=== PATIENT | female | born 1975 | race African-American/Black ===

== ENCOUNTER 2017-05-02 07:05 | Inpatient (IN) | payer BC ==
[2017-05-02] MEDS ORDERED: Sodium Chloride 0.9% 10 ML Syringe FLUSH PRN (09:12)
[2017-05-02] MEDS ORDERED: Lactated Ringers 1,000 ML IV SCH (09:15)
[2017-05-02] MEDS: Oxytocin/Lactated Ringers 10 UNIT/1,000 ML BAG IV SCH ×4 (09:35→14:33)
--- NOTE | 2017-05-02 09:41 | PCM.LDHP ---
L&D History of Present Illness - General Date of Service: 05/02/17 Admit Problem/Dx: Patient Status Order with Admit Dx/Problem 05/02/17 09:15 Patient Status [ADT] Routine Admission Diagnosis/Problem Admission Diagnosis/Problem Source of Information: Patient History Limitations: Reports: No Limitations - History of Present Illness Introduction:: Patient is a 41 y/o at 39 5/7 wks presents for IOL for AMA. Doing well. No new issues since last seen in clinic. - Related Data Allergies/Adverse Reactions: Allergies Allergy/AdvReac Type Severity Reaction Status Date / Time No Known Allergies Allergy Verified 03/22/15 17:40 Home Medications: Home Meds PNV95/Ferrous Fumarate/FA [ Tablet] 1 each PO DAILY 07/28/15 [History] Alum Hydrox/Mag Hydrox/Simeth [Mag-Al Plus] 30 ml PO Q8H PRN #0 cup 08/04/15 [Rx ] Past Medical History HEENT History: Reports: Other (See Below) Other HEENT History: Wears glasses Cardiovascular History: Reports: Other (See Below) (Hx of pre- eclampsia) [employer] History: Reports: Fibroids, , Spontaneous : 5 Para: 2 LMP (Approximate): - Infectious Disease History Infectious Disease History: Reports: Hepatitis B - Past Surgical History Female Surgical History: Reports: D&C Social & Family History - Family History Family Medical History: Noncontributory OBGYN: Reports: Fibroids - Tobacco Use Smoking Status *Q: Never Smoker - Alcohol Use Alcohol Use History: No - Recreational Drug Use Recreational Drug Use: No H&P Review of Systems - Review of Systems: Review Of Systems: See Below General: Reports: No Symptoms Pulmonary: Reports: No Symptoms Cardiovascular: Reports: No Symptoms Gastrointestinal: Reports: No Symptoms Genitourinary: Reports: No Symptoms Musculoskeletal: Reports: No Symptoms Psychiatric: Reports: No Symptoms L&D Exam - Exam Exam: See Below - Vital Signs Weight: 88.904 kg - OB Specific Contraction Intensity: Irritability Movement: Active Heart Tones: Present Heart Tones per Min: 140 Heart Rate (FHR) Variability: Moderate (6-25 bmp) Presentation: Vertex - Torres Score Torres Score Cervix Position: Midposition Torres Score Consistency: Soft Torres Score Effacement: 51-70% Torres Score Dilation: 3-4 cm Torres Score 's Station: -2 Torres Score Total: 8 - Exam General: Alert, Oriented, Cooperative Lungs: Clear to Auscultation, Normal Respiratory Effort Cardiovascular: Regular Rate, Regular Rhythm GI/Abdominal Exam: Soft, Non-Tender Genitourinary: Normal external exam Extremities: Normal Inspection Skin: Warm, Dry, Intact - Patient Data Lab Results Last 24 hrs: Laboratory Results - last 24 hr 05/02/17 Range/Units 08:20 WBC 6.26 (3.98-10.04) K/mm3 RBC 5.09 (3.98-5.22) M/mm3 Hgb 12.1 (11.2-15.7) gm/L Hct 37.7 (34.1-44.9) % MCV 74.1 L (79.4-94.8) fl MCH 23.8 L (25.6-32.2) pg MCHC 32.1 L (32.2-35.5) g/dl RDW Std Deviation 39.4 (36.4-46.3) fL Plt Count 180 L (182-369) K/mm3 MPV 11.2 (9.4-12.3) fl Result Diagrams: 05/02/17 08:20 - Problem List (1) 39 weeks gestation of SNOMED Code(s): 88773832 ICD Code: Z3A.39 - 39 WEEKS GESTATION OF Status: Acute Current Visit: Yes (2) Advanced maternal age (AMA) in SNOMED Code(s): 424621974 ICD Code: GXP4323 - Status: Acute Current Visit: No (3) Fibroid uterus SNOMED Code(s): 74126175 ICD Code: D25.9 - LEIOMYOMA OF UTERUS, UNSPECIFIED Status: Acute Current Visit: No Qualifiers: Uterine leiomyoma location: unspecified location Qualified Code(s): D25.9 - Leiomyoma of uterus, unspecified (4) Hepatitis B affecting SNOMED Code(s): 037887073 ICD Code: O98.419 - VIRAL HEPATITIS COMPLICATING , UNSP TRIMESTER; B19.10 - UNSPECIFIED VIRAL HEPATITIS B WITHOUT HEPATIC COMA Status: Acute Current Visit: No Problem List Initiated/Reviewed/Updated: Yes Orders Last 24hrs: Active Orders 24 hr Category Date Time Status Patient Status [ADT] Routine ADT 05/02/17 09:15 Active Activity as Tolerated [RC] PFP Care 05/02/17 09:15 Active Communication Order [RC] ASDIRECTED Care 05/02/17 09:15 Active Heart Tones [RC] ASDIRECTED Care 05/02/17 09:15 Active Notify Provider [RC] PFP Care 05/02/17 09:15 Active Notify Provider [RC] PRN Care 05/02/17 09:15 Active Peripheral IV Care [RC] . DIRECTED Care 05/02/17 09:15 Active Vital Signs [RC] PER UNIT ROUTINE Care 05/02/17 09:15 Active Regular Diet [DIET] Diet 05/02/17 Breakfast Active CBC W/O DIFF,HEMOGRAM [HEME] Stat Lab 05/02/17 09:12 Ordered TYPE AND SCREEN [BBK] Stat Lab 05/02/17 09:12 Ordered Lactated Ringers [Ringers, Lactated] 1,000 ml Med 05/02/17 09:15 Active IV ASDIRECTED Oxytocin/Lactated Ringers [Pitocin in LR 10 Units/1,000 Med 05/02/17 09:30 Active ML] 10 unit in 1,000 ml IV TITRATE Sodium Chloride 0.9% [Saline Flush] Med 05/02/17 09:12 Active 10 ml FLUSH ASDIRECTED PRN Electronic Heart Tones Ext w TOCO [WOMSER] Oth 05/02/17 09:15 Ordered Routine Electronic Heart Tones Internal [WOMSER] Per Unit Oth 05/02/17 09:15 Ordered Routine Peripheral IV Insertion Adult [OM.PC] Routine Oth 05/02/17 09:15 Ordered Resuscitation Status Routine Resus Stat 05/02/17 09:12 Ordered Medication Orders Lactated Ringer's (Ringers, Lactated) 1,000 mls @ 100 mls/hr IV ASDIRECTED TAHIR Last Admin: 05/02/17 09:35 Dose: 100 mls/hr Oxytocin/Lactated Ringer's (Pitocin In Lr 10 Units/1,000 Ml) 10 unit in 1,000 mls @ 12 mls/hr IV TITRATE TAHIR; 2 MUNITS/MIN PRN Reason: Protocol Last Admin: 05/02/17 09:35 Dose: 2 munits/min, 12 mls/hr Sodium Chloride (Saline Flush) 10 ml FLUSH ASDIRECTED PRN PRN Reason: Keep Vein Open Assessment/Plan Comment:: 41 y/o at 39 5/7 wks presents for IOL for AMA * CBC and T&S * GBS negative, no need for antibiotics * Pitocin for IOL. AROM when able * Pain management per patient preference. * Will notify Pediatricians of Hep B positive status so baby can be treated. * Monitor BP's closely (Hx of preeclampsia in last )
--- NOTE | 2017-05-02 14:10 | PCM.PNLD ---
Labor Progress Note - VS & Meds Vital Signs: Last Vital Signs Temp 37.0 C 05/02/17 08:00 Pulse 105 H 05/02/17 08:00 Resp 18 05/02/17 08:00 BP 145/78 H 05/02/17 08:00 Pulse Ox 97 05/02/17 08:00 Active Medications: Current Medications Lactated Ringer's (Ringers, Lactated) 1,000 mls @ 100 mls/hr IV ASDIRECTED TAHIR Last Admin: 05/02/17 09:35 Dose: 100 mls/hr Oxytocin/Lactated Ringer's (Pitocin In Lr 10 Units/1,000 Ml) 10 unit in 1,000 mls @ 12 mls/hr IV TITRATE TAHIR; 2 MUNITS/MIN PRN Reason: Protocol Last Admin: 05/02/17 13:44 Dose: 6 munits/min, 36 mls/hr Sodium Chloride (Saline Flush) 10 ml FLUSH ASDIRECTED PRN PRN Reason: Keep Vein Open - Uterine Contractions Uterine Monitoring Mode: External [place] Contraction Intensity: Mild Uterine Resting Tone: Soft - Monitoring Monitor Mode: External Ultrasound Heart Rate (FHR) Baseline: 135 Heart Rate (FHR) Variability: Moderate (6-25 bmp) Accelerations: Present, 15x15 Decelerations: None Strip Review: Category I - Vaginal Exam Dilation (cm): 3 Effacement (Percent): 80 Station: -2 Cervical Position: Midposition - Labor Progress (Free Text) Labor Progress: Patient is on 6 of pitocin. Feeling some contractions. AROM performed with release of clear fluid
[2017-05-02] MEDS ORDERED: Misoprostol 200 MCG Tab PO STA (17:27)
--- NOTE | 2017-05-02 17:27 | PCM.DEL ---
L & D Note - General Info Date of Service: 05/02/17 - Delivery Note Labor: Induced by ARM, Induced by Oxytocin Delivery Outcome: Livebirth Infant Delivery Method: Spontaneous Vaginal Delivery-Single Infant Delivery Mode: Spontaneous Presentation: Left Occiput Anterior (MARELY) Nuchal Cord: None Anesthesia Type: None Amniotic Fluid Description: Clear Episiotomy Type: None Laceration: None Placenta: Intact, Spontaneous Cord: 3 Vessels Estimated Blood Loss: 400 Resuscitation Needed: Yes : Bulb Syringe, Stimulated, Warmed, Flat Top Used Score 1 min: 8 Score 5 min: 9 Delivery Comments (Free Text/Narrative):: Patient found to be complete and began pushing. With maternal pushing effort head delivered from an MARELY presentation. No nuchal cord present. With gentle downward traction the shoulders and body delivered. Infant placed on maternal abdomen. Cord clamped and cut. Cord blood obtained. Placenta allowed time to separate and expelled intact. Inspection of the perineum showed no lacerations - Patient Data Vitals - Most Recent: Last Vital Signs Temp 37.0 C 05/02/17 08:00 Pulse 105 H 05/02/17 08:00 Resp 18 05/02/17 08:00 BP 145/78 H 05/02/17 08:00 Pulse Ox 97 05/02/17 08:00 Weight - Most Recent: 88.904 kg I&O - Last 24 Hours: Intake & Output 05/02/17 05/02/17 05/02/17 06:59 14:59 22:59 Intake Total 120 320 Balance 120 320 Lab Results Last 24 Hours: Laboratory Results - last 24 hr 05/02/17 05/02/17 Range/Units 08:20 08:20 WBC 6.26 (3.98-10.04) K/mm3 RBC 5.09 (3.98-5.22) M/mm3 Hgb 12.1 (11.2-15.7) gm/L Hct 37.7 (34.1-44.9) % MCV 74.1 L (79.4-94.8) fl MCH 23.8 L (25.6-32.2) pg MCHC 32.1 L (32.2-35.5) g/dl RDW Std Deviation 39.4 (36.4-46.3) fL Plt Count 180 L (182-369) K/mm3 MPV 11.2 (9.4-12.3) fl Blood Type O POSITIVE Gel Antibody Screen Negative Med Orders - Current: Current Medications Lactated Ringer's (Ringers, Lactated) 1,000 mls @ 100 mls/hr IV ASDIRECTED TAHIR Last Admin: 05/02/17 09:35 Dose: 100 mls/hr Oxytocin/Lactated Ringer's (Pitocin In Lr 10 Units/1,000 Ml) 10 unit in 1,000 mls @ 12 mls/hr IV TITRATE TAHRI; 2 MUNITS/MIN PRN Reason: Protocol Last Admin: 05/02/17 14:33 Dose: 8 munits/min, 48 mls/hr Sodium Chloride (Saline Flush) 10 ml FLUSH ASDIRECTED PRN PRN Reason: Keep Vein Open - Problem List & Annotations (1) 39 weeks gestation of SNOMED Code(s): 83548491 Code(s): Z3A.39 - 39 WEEKS GESTATION OF Status: Acute Current Visit: Yes (2) Advanced maternal age (AMA) in SNOMED Code(s): 085223581 Code(s): QIO6240 - Status: Acute Current Visit: No (3) Fibroid uterus SNOMED Code(s): 97545908 Code(s): D25.9 - LEIOMYOMA OF UTERUS, UNSPECIFIED Status: Acute Current Visit: No Qualifiers: Uterine leiomyoma location: unspecified location Qualified Code(s): D25.9 - Leiomyoma of uterus, unspecified (4) Hepatitis B affecting SNOMED Code(s): 973800024 Code(s): O98.419 - VIRAL HEPATITIS COMPLICATING , UNSP TRIMESTER; B19.10 - UNSPECIFIED VIRAL HEPATITIS B WITHOUT HEPATIC COMA Status: Acute Current Visit: No (5) Vaginal delivery SNOMED Code(s): 898289510 Code(s): O80 - ENCOUNTER FOR FULL-TERM UNCOMPLICATED DELIVERY Status: Acute Current Visit: No - Problem List Review Problem List Initiated/Reviewed/Updated: Yes - My Orders Last 24 Hours: My Active Orders 05/02/17 09:12 Sodium Chloride 0.9% [Saline Flush] 10 ml FLUSH ASDIRECTED PRN Resuscitation Status Routine 05/02/17 09:15 Patient Status [ADT] Routine Activity as Tolerated [RC] PFP Communication Order [RC] ASDIRECTED Heart Tones [RC] ASDIRECTED Notify Provider [RC] PFP Notify Provider [RC] PRN Peripheral IV Care [RC] . DIRECTED Vital Signs [RC] PER UNIT ROUTINE Lactated Ringers [Ringers, Lactated] 1,000 ml IV ASDIRECTED Electronic Heart Tones Ext w TOCO [WOMSER] Routine Electronic Heart Tones Internal [WOMSER] Per Unit Routine Peripheral IV Insertion Adult [OM.PC] Routine 05/02/17 09:30 Oxytocin/Lactated Ringers [Pitocin in LR 10 Units/1,000 ML] 10 unit in 1,000 ml IV TITRATE 05/02/17 Breakfast Regular Diet [DIET] - Assessment Assessment:: 41 y/o G5 now P3023 PPD#0 from at 39 5/7 wks after IOL for AMA - Plan Plan:: * Routine cares * Encourage breast feeding * Monitor BP's closely. Has had some mild ranges in labor and has hx of preeclampsia after last delivery * Discharge home in 2 days
[2017-05-02] MEDS ORDERED: Witch Hazel Medicated Pads 100/Jar TOP PRN (18:13)
[2017-05-02] MEDS ORDERED: Acetaminophen 325 MG Tab PO PRN (18:13)
[2017-05-02] MEDS ORDERED: Docusate Sodium 100 MG Cap PO PRN (18:13)
[2017-05-02] MEDS ORDERED: Benzocaine/Menthol 20%-0.5% Spray 56 GM Canister TOP PRN (18:13)
[2017-05-02] MEDS ORDERED: Lanolin 100% Cream 7 GM Tube TOP PRN (18:13)
[2017-05-02] MEDS: Ibuprofen 600 MG Tab PO PRN (20:49)
[2017-05-03] MEDS: Ibuprofen 600 MG Tab PO PRN ×2 (04:11→12:43)
--- NOTE | 2017-05-03 07:01 | PCM.PNPP ---
- General Info Date of Service: 05/03/17 Functional Status: Reports: Pain Controlled, Tolerating Diet, Ambulating, Urinating - Review of Systems General: Reports: No Symptoms Pulmonary: Reports: No Symptoms Cardiovascular: Reports: No Symptoms Gastrointestinal: Reports: No Symptoms Genitourinary: Reports: No Symptoms Musculoskeletal: Reports: No Symptoms - Patient Data Vital Signs - Most Recent: Last Vital Signs Temp 37.1 C 05/02/17 22:46 Pulse 74 05/03/17 04:05 Resp 16 05/03/17 04:05 BP 126/77 05/03/17 04:05 Pulse Ox 100 05/03/17 04:05 Weight - Most Recent: 88.904 kg I&O - Last 24 Hours: Intake & Output 05/02/17 05/03/17 05/03/17 22:59 06:59 14:59 Intake Total 2540 Balance 2540 Lab Results - Last 24 Hours: Laboratory Results - last 24 hr 05/02/17 05/02/17 Range/Units 08:20 08:20 WBC 6.26 (3.98-10.04) K/mm3 RBC 5.09 (3.98-5.22) M/mm3 Hgb 12.1 (11.2-15.7) gm/L Hct 37.7 (34.1-44.9) % MCV 74.1 L (79.4-94.8) fl MCH 23.8 L (25.6-32.2) pg MCHC 32.1 L (32.2-35.5) g/dl RDW Std Deviation 39.4 (36.4-46.3) fL Plt Count 180 L (182-369) K/mm3 MPV 11.2 (9.4-12.3) fl Blood Type O POSITIVE Gel Antibody Screen Negative Med Orders - Current: Current Medications Acetaminophen (Tylenol) 650 mg PO Q4H PRN PRN Reason: mild pain or fever Benzocaine/Menthol (Dermoplast Pain Relief [place]) 0 gm TOP ASDIRECTED PRN PRN Reason: Perineal Comfort Measure Last Admin: 05/03/17 04:14 Dose: 1 canister Docusate Sodium (Colace) 100 mg PO BID PRN PRN Reason: Constipation Emollient Ointment (Lansinoh Hpa) 0 gm TOP ASDIRECTED PRN PRN Reason: Sore Nipples Ibuprofen (Motrin) 600 mg PO Q6H PRN PRN Reason: Mild pain or fever Last Admin: 05/03/17 04:11 Dose: 600 mg Witch Clare (Tucks) 1 pad TOP ASDIRECTED PRN PRN Reason: Hemorrhoid pain Last Admin: 05/03/17 04:14 Dose: 1 tub Discontinued Medications Lactated Ringer's (Ringers, Lactated) 1,000 mls @ 100 mls/hr IV ASDIRECTED TAHIR Last Admin: 05/02/17 09:35 Dose: 100 mls/hr Oxytocin/Lactated Ringer's (Pitocin In Lr 10 Units/1,000 Ml) 10 unit in 1,000 mls @ 12 mls/hr IV TITRATE TAHIR; 2 MUNITS/MIN PRN Reason: Protocol Last Admin: 05/02/17 14:33 Dose: 8 munits/min, 48 mls/hr Misoprostol (Cytotec) 600 mcg PO NOW STA Stop: 05/02/17 17:28 Sodium Chloride (Saline Flush) 10 ml FLUSH ASDIRECTED PRN PRN Reason: Keep Vein Open - Infant Interaction Infant Disposition, : in Room with Family Interaction: Holding Infant Feeding: Breastfed ; Nursed Well Support Person: - Recovery Exam Fundal Tone: Firm Fundal Level: 1 Fingerbreadths Below Umbilicus Fundal Placement: Midline Lochia Amount: None Lochia Color: Rubra/Red Episiotomy/Laceration: None Bladder Status: Voiding Urinary Elimination: Voided - Exam General: Alert, Oriented, Cooperative GI/Abdominal Exam: Soft, Non-Tender Extremities: Normal Inspection Skin: Warm, Dry, Intact - Problem List & Annotations (1) 39 weeks gestation of SNOMED Code(s): 12673240 Code(s): Z3A.39 - 39 WEEKS GESTATION OF Status: Acute Current Visit: Yes (2) Advanced maternal age (AMA) in SNOMED Code(s): 059219349 Code(s): NCL1001 - Status: Acute Current Visit: No (3) Fibroid uterus SNOMED Code(s): 51173639 Code(s): D25.9 - LEIOMYOMA OF UTERUS, UNSPECIFIED Status: Acute Current Visit: No Qualifiers: Uterine leiomyoma location: unspecified location Qualified Code(s): D25.9 - Leiomyoma of uterus, unspecified (4) Hepatitis B affecting SNOMED Code(s): 615439957 Code(s): O98.419 - VIRAL HEPATITIS COMPLICATING , UNSP TRIMESTER; B19.10 - UNSPECIFIED VIRAL HEPATITIS B WITHOUT HEPATIC COMA Status: Acute Current Visit: No (5) Vaginal delivery SNOMED Code(s): 597240474 Code(s): O80 - ENCOUNTER FOR FULL-TERM UNCOMPLICATED DELIVERY Status: Acute Current Visit: No - Problem List Review Problem List Initiated/Reviewed/Updated: Yes - My Orders Last 24 Hours: My Active Orders 05/02/17 09:12 Resuscitation Status Routine 05/02/17 09:15 Activity as Tolerated [RC] PFP Communication Order [RC] ASDIRECTED Heart Tones [RC] ASDIRECTED Notify Provider [RC] PFP Notify Provider [RC] PRN 05/02/17 18:13 Activity as Tolerated [RC] PER UNIT ROUTINE Vital Signs [RC] 20,04,12 Acetaminophen [Tylenol] 650 mg PO Q4H PRN Benzocaine/Menthol [Dermoplast Pain Relief [place]] See Dose Instructions TOP ASDIRECTED PRN Docusate Sodium [Colace] 100 mg PO BID PRN Ibuprofen [Motrin] 600 mg PO Q6H PRN Lanolin [Lansinoh HPA] See Dose Instructions TOP ASDIRECTED PRN Witch Clare [Tucks] 1 pad TOP ASDIRECTED PRN Assess Lochia [WOMSER] Per Unit Routine Assess Uterine Involution [WOMSER] Per Unit Routine Breast Pump [WOMSER] Per Unit Routine Heat Therapy [OM.PC] PRN Ice Therapy [OM.PC] Per Unit Routine Perineal Care [OM.PC] Per Unit Routine Peripheral IV Discontinue [OM.PC] Routine Sitz Bath [OM.PC] Per Unit Routine 05/02/17 Dinner Regular Diet [DIET] 05/03/17 18:13 Heat Therapy [OM.PC] PRN - Assessment Assessment:: 41 y/o G5 now P3023 PPD#1 from at 39 5/7 wks after IOL for AMA - Plan Plan:: * Routine cares * Encourage breast feeding * BP's normal post delivery. Will have her follow up though next week for BP check given hx of preeclampsia after last delivery * Discharge home today per patient preference
--- NOTE | 2017-05-03 07:03 | PCM.DCSUM1 ---
Discharge Summary - Discharge Data Discharge Date: 05/03/17 Discharge Disposition: Home, Self-Care 01 Condition: Good - Discharge Diagnosis/Problem(s) (1) 39 weeks gestation of SNOMED Code(s): 99162929 ICD Code: Z3A.39 - 39 WEEKS GESTATION OF Status: Acute Current Visit: Yes (2) Advanced maternal age (AMA) in SNOMED Code(s): 015314167 ICD Code: NRH2065 - Status: Acute Current Visit: No (3) Fibroid uterus SNOMED Code(s): 97113296 ICD Code: D25.9 - LEIOMYOMA OF UTERUS, UNSPECIFIED Status: Acute Current Visit: No Qualifiers: Uterine leiomyoma location: unspecified location Qualified Code(s): D25.9 - Leiomyoma of uterus, unspecified (4) Hepatitis B affecting SNOMED Code(s): 663549449 ICD Code: O98.419 - VIRAL HEPATITIS COMPLICATING , UNSP TRIMESTER; B19.10 - UNSPECIFIED VIRAL HEPATITIS B WITHOUT HEPATIC COMA Status: Acute Current Visit: No (5) Vaginal delivery SNOMED Code(s): 421353134 ICD Code: O80 - ENCOUNTER FOR FULL-TERM UNCOMPLICATED DELIVERY Status: Acute Current Visit: No - Patient Summary/Data Complications: None Consults: None Recommended Follow-up Testing/Procedures: Follow up in 1 week for BP check Hospital Course: 41 y/o presented at 39 5/7 wks for IOL for AMA. This was done with pitocin and AROM. She progressed well to complete dilation and underwent an uncomplicated . See delivery note. she did well and was discharged home on PPD#1 - Patient Instructions Diet: Regular Diet as Tolerated Activity: As Tolerated Activity, Other: Pelvic Rest for 6 weeks Driving: May Drive Today Showering/Bathing: May Shower Showering/Bathing, Other: May Bathe Notify Provider of: Fever, Increased Pain, Swelling and Redness, Drainage, Nausea and/or Vomiting - Discharge Plan Home Medications: Home Meds PNV95/Ferrous Fumarate/FA [ Tablet] 1 each PO DAILY 07/28/15 [History] Docusate Sodium [Colace] 100 mg PO BID PRN cap 05/03/17 [Rx] Ibuprofen [IJD: Ibuprofen] 600 mg PO Q6H PRN tablet 05/03/17 [Rx] Referrals: Evie Pantoja MD [Primary Care Provider] - (1 week for a BP check ) - Discharge Summary/Plan Comment DC Time >30 min.: No - Patient Data Vitals - Most Recent: Last Vital Signs Temp 37.1 C 05/02/17 22:46 Pulse 74 05/03/17 04:05 Resp 16 05/03/17 04:05 BP 126/77 05/03/17 04:05 Pulse Ox 100 05/03/17 04:05 Weight - Most Recent: 88.904 kg I&O - Last 24 hours: Intake & Output 05/02/17 05/03/17 05/03/17 22:59 06:59 14:59 Intake Total 2540 Balance 2540 Lab Results - Last 24 hrs: Laboratory Results - last 24 hr 05/02/17 05/02/17 Range/Units 08:20 08:20 WBC 6.26 (3.98-10.04) K/mm3 RBC 5.09 (3.98-5.22) M/mm3 Hgb 12.1 (11.2-15.7) gm/L Hct 37.7 (34.1-44.9) % MCV 74.1 L (79.4-94.8) fl MCH 23.8 L (25.6-32.2) pg MCHC 32.1 L (32.2-35.5) g/dl RDW Std Deviation 39.4 (36.4-46.3) fL Plt Count 180 L (182-369) K/mm3 MPV 11.2 (9.4-12.3) fl Blood Type O POSITIVE Gel Antibody Screen Negative Med Orders - Current: Current Medications Acetaminophen (Tylenol) 650 mg PO Q4H PRN PRN Reason: mild pain or fever Benzocaine/Menthol (Dermoplast Pain Relief [place]) 0 gm TOP ASDIRECTED PRN PRN Reason: Perineal Comfort Measure Last Admin: 05/03/17 04:14 Dose: 1 canister Docusate Sodium (Colace) 100 mg PO BID PRN PRN Reason: Constipation Emollient Ointment (Lansinoh Hpa) 0 gm TOP ASDIRECTED PRN PRN Reason: Sore Nipples Ibuprofen (Motrin) 600 mg PO Q6H PRN PRN Reason: Mild pain or fever Last Admin: 05/03/17 04:11 Dose: 600 mg Witch Clare (Tucks) 1 pad TOP ASDIRECTED PRN PRN Reason: Hemorrhoid pain Last Admin: 05/03/17 04:14 Dose: 1 tub Discontinued Medications Lactated Ringer's (Ringers, Lactated) 1,000 mls @ 100 mls/hr IV ASDIRECTED TAHIR Last Admin: 05/02/17 09:35 Dose: 100 mls/hr Oxytocin/Lactated Ringer's (Pitocin In Lr 10 Units/1,000 Ml) 10 unit in 1,000 mls @ 12 mls/hr IV TITRATE TAHIR; 2 MUNITS/MIN PRN Reason: Protocol Last Admin: 05/02/17 14:33 Dose: 8 munits/min, 48 mls/hr Misoprostol (Cytotec) 600 mcg PO NOW STA Stop: 05/02/17 17:28 Sodium Chloride (Saline Flush) 10 ml FLUSH ASDIRECTED PRN PRN Reason: Keep Vein Open *Q Meaningful Use (DIS) - VTE *Q VTE Criteria *Q: - Stroke *Q Stroke Criteria *Q: - AMI *Q AMI Criteria *Q:
[2017-05-03 13:14] VITALS: BP 126/74
== END 2017-05-03 18:42 | disposition home or self-care (01) | DRG 560 ==
LOC: JD.OB 07:05 → UNDOADMOB 07:46 → JD.OB 17:08 → OBSVTOIN 17:08
PROVIDERS: ADMIT Obstetrics & Gynecology; ATTEND Obstetrics & Gynecology
PROC: 10E0XZZ Delivery of Products of Conception, External Approach (ICD-10-PCS; principal; 2017-05-02)
PROC: 10907ZC Drainage of Amniotic Fluid, Therapeutic from Products of Conception, Via Natural or Artificial Opening (ICD-10-PCS; 2017-05-02)
PROC: 3E033VJ Introduction of Other Hormone into Peripheral Vein, Percutaneous Approach (ICD-10-PCS; 2017-05-02)
DX: O34.13 Maternal care for benign tumor of corpus uteri, third trimester (principal); D25.9 Leiomyoma of uterus, unspecified; O98.413 Viral hepatitis complicating pregnancy, third trimester; B19.10 Unspecified viral hepatitis B without hepatic coma; Z3A.39 39 weeks gestation of pregnancy; Z37.0 Single live birth
CPT/HCPCS: 36415; 59409; 85027; 86850; 86900; 86901; A9270-GY; J2590; J7120